=== PATIENT | male | born 1940 | race Caucasian/White ===

== ENCOUNTER 2018-01-30 15:32 | Inpatient (IN) | payer MEDICARE ==
[~2018-01-30] VITALS: Ht 182.9 cm; Wt 116.3 kg
[2018-01-30] MEDS ORDERED: SYNTHROID150 MCG PO (15:53)
[2018-01-30] MEDS ORDERED: METOPROLOL TART25 MG PO (15:53)
[2018-01-30] MEDS ORDERED: GLUCOPHAGE500 MG PO (15:54)
[2018-01-30] MEDS ORDERED: LISINOPRIL20 MG PO (15:54)
[2018-01-30] MEDS ORDERED: EVAC-U-GEN8.6 MG PO (15:54)
[2018-01-30] MEDS ORDERED: TRAMADOL HCL50 MG PO (15:55)
[2018-01-30] MEDS ORDERED: SIMVASTATIN20 MG PO (15:55)
--- OUTSIDE RECORDS SUMMARY | 2018-01-30 16:57 | XMS | Clinical Summary ---
Demographics + + + | Address | [address] | | | [place] [address] | + + + | Home Phone | | + + + | Preferred Language | Unknown | + + + | Marital Status | Single | + + + | Restoration Affiliation | Unknown | + + + | Race | Unknown | + + + | Ethnic Group | Other Race | + + + Author + + + | Author | [facility] | + + + | Organization | [facility] | + + + | Address | Unknown | + + + | Phone | Unavailable | + + + Support + + +---------+ + | Name | Relationship | Address | Phone | + + +---------+ + | Kimberly Cortez | ECON | Unknown | | + + +---------+ + Care Team Providers + +------+ + | Care Cosmetology Instructor Name | Role | Phone | + +------+ + | Opal Meza MD | PP | | + +------+ + Source Comments RADHA is fully live on both [facility] and [facility] Allergies No Known Allergies Current Medications + + +-------+---------+------+------+-------+ | Prescription | Sig. | Disp. | Refills | Star | End | Statu | | | | | | t | Date | s | | | | | | Date | | | + + +-------+---------+------+------+-------+ | simvastatin 20 mg | Take 20 mg by mouth | | | | | Activ | | oral tablet | once daily in the | | | | | e | | | evening. | | | | | | + + +-------+---------+------+------+-------+ | metFORMIN 1,000 mg | Take 1,000 mg by | | | | | Activ | | oral tablet | mouth two times | | | | | e | | | daily. | | | | | | + + +-------+---------+------+------+-------+ | lisinopril 20 mg | Take 20 mg by mouth | | | | | Activ | | oral tablet | once daily. | | | | | e | + + +-------+---------+------+------+-------+ | ibuprofen 200 mg | Take 200 mg by mouth | | | | | Activ | | oral tablet | every six hours as | | | | | e | | | needed. | | | | | | + + +-------+---------+------+------+-------+ | MULTIVITAMIN ORAL | Take 1 tablet by | | | | | Activ | | | mouth once daily. | | | | | e | + + +-------+---------+------+------+-------+ | zinc sulfate 110 | Take 220 mg by mouth | | | | | Activ | | mg (25 mg zinc) oral | once daily. | | | | | e | | tablet | | | | | | | + + +-------+---------+------+------+-------+ Active Problems + + + | Problem | Noted Date | + + + | Prostate cancer (HCC) | 02/17/2015 | + + + Family History + + +------+ + | Medical History | Relation | Name | Comments | + + +------+ + | Cancer | Sister | | lung | + + +------+ + + +------+ + + | Relation | Name | Status | Comments | + +------+ + + | Brother | | Other | | + +------+ + + | Daughter | | Alive | | + +------+ + + | Mother | | | | + +------+ + + | Sister | | | | + +------+ + + | Sister | | Alive | | + +------+ + + | Sister | | Alive | | + +------+ + + | Sister | | Alive | | + +------+ + + Social History + +-------+ +--------+------+ | Tobacco Use | Types | Packs/Day | Years | Date | | | | | Used | | + +-------+ +--------+------+ | Never Smoker | | | | | + +-------+ +--------+------+ + + +---------+ + | Alcohol Use | Drinks/We | oz/Week | Comments | | | ek | | | + + +---------+ + | Yes | 14 | 7.0 | | | | Standard | | | | | drinks or | | | | | | | | | | equivalen | | | | | t | | | + + +---------+ + + + + | Sex Assigned at | Date Recorded | | | | + + + | Not on file | | + + + Last Filed Vital Signs + + + + | Vital Sign | Reading | Time Taken | + + + + | Blood Pressure | 160/94 | 10/18/2016 2:10 PM PST | + + + + | Pulse | 114 | 10/18/2016 2:10 PM PST | + + + + | Temperature | 36.7 C (98.1 F) | 04/26/2016 2:15 PM PDT | + + + + | Respiratory Rate | - | - | + + + + | Oxygen Saturation | 94% | 04/26/2016 2:15 PM PDT | + + + + | Inhaled Oxygen | - | - | | Concentration | | | + + + + | Weight | 119.8 kg (264 lb 3.2 | 10/18/2016 2:10 PM PST | | | oz) | | + + + + | Height | 180.3 cm (5' 11") | 02/17/2015 11:56 AM PDT | + + + + | Body Mass Index | 36.85 | 10/18/2016 2:10 PM PST | + + + + Plan of Treatment + + + + + | Health Maintenance | Due Date | Last Done | Comments | + + + + + | INFLUENZA VACCINE | | | | | (FLU SHOT) | 7 | | | + + + + + Results Not on filefrom Last 3 Months
--- OUTSIDE RECORDS SUMMARY | 2018-01-30 16:57 | XMS | Clinical Summary ---
Demographics + + + | Address | [address] | | | [place] [address] | + + + | Home Phone | | + + + | Preferred Language | Unknown | + + + | Marital Status | Single | + + + | Taoism Affiliation | Unknown | + + + [...] Team Providers + +------+ + | Care Powder Truck Driver Name | Role | Phone | + +------+ + | Opal Meza MD | PP | | + +------+ + Source Comments RADHA is fully live on both [facility] and [facility] Allergies No Known Allergies Current Medications + [...]
--- OUTSIDE RECORDS SUMMARY | 2018-01-30 19:59 | XMS | Clinical Summary ---
Demographics + + + | Address | [address] | | | [place] [address] | + + + | Home Phone | | + + + | Preferred Language | Unknown | + + + | Marital Status | Single | + + + | Sikhism Affiliation | Unknown | + + + [...] Team Providers + +------+ + | Care Electro Mechanic Name | Role | Phone | + +------+ + | Opal Meza MD | PP | | + +------+ + Source Comments RADHA is fully live on both [facility] and [facility] InPatient.[facility] Allergies No Known Allergies Current Medications [...]
--- NOTE | 2018-01-30 20:00 | NUR ---
PT ARRIVED ON FLOOR AT 1935, SPEECH AND HEARING DIRECTOR DID ADMISSION. PT DENIED PAIN AND SEEMED IN GOOD SPIRITS WHEN I ENTERED THE ROOM. WILL DO NEXT ASSESSMENT IN 4HRS FROM ARRIVAL TIME, WILL COLSELY WATCH FOR ETOH WITHDRAWL S/S AND URINE OUTPUT, AND MENTAL STATUS.
--- NOTE | 2018-01-30 20:00 | NUR ---
PT ADMITTED TO ROOM 122 AT 1935 FROM ED, VIA STREETCHER. PT ALERT TO SELF AND PLACE BUT NOT TIME. COOPERATIVE WITHE ASSESSMENT. ALL PROCEDURES EXPLAINED. EYES SCLERA RED WITH YELLOW DRAINAGE, EYES CLEANSED WITH WARM WASH CLOTH. WEARS UPPER PARTIALS, CURRENTLY AT HOME. NO SWALLOW PROBLEMS NOTED, ABLE TO TOLERATE FLUID W/O PROBLEMS. LUNGS DIM AT BASES, DISTANT HEART RATE, TELE#1 PLACED . IV IN L WRIST PATENT, WRAPPED WITH COBAN PT WAS VERY CURIOUS ABOUT TUBE AND PULLINGIN IT. TEACHING DONE, COOP. 2+ EDEMA LOWER THIRD BILAT CALVES, 3+ LEFT ANKLE AND FOOT. STATES PAINFUL LEFT HIP AND OF "NEEDING SURGERY IN THAT HIP". 4+ RIGHT ANKLE AND FOOT, HX R HIP SURGERY. F/C IN PLACE, DRAINING DARK URSULA COLORED URINE. OPEN AREAS AND RED BUTTOCKS AREAS AND R MID INNER LOWER CALF AREA. OLD SCRATCHES LEFT OUTER CALF AREA, NOT OPEN, DIFFERENT HEALING STAGES. ALLEVYN DRESSING TO BE APPLIED TO OPEN AREAS. PT ORIENTED TO HOSP ROUTINES, EQUIPMENT AND PROCEDURES STATED UNDERSTANDING. FAMILY MEMBER IN ROOM LAB HERE DRAWING BLOOD. PT ORIENTED TO HOSP ROOM AND ROUTINE HO 4+ 3+ R ANKLE AND FOOT, 4+ R FOOT AND ANKLE
--- NOTE | 2018-01-30 22:00 | NUR ---
PT IS SLEEPING AT THIS TIME.
--- NOTE | 2018-01-31 | NUR ---
V/S ARE WDL OVERALL. PT IS ONLY ORIENTED TO SELF AT THIS TIME, AND IS NOT FOLLWING SIMPLE COMMANDS FOR THE MOST PART. PT WON'T DEEP BREATH WHEN AUSCULTATING LUNGS. ALL LOBES ARE CLEAR BUT DIMINISHED. STRENGTH IN ARMS IS +5, BILATERAL LEG STRENGTH IS NON EXISTENT. RIGHT LOWER LEG EDEMA IS +4, LEFT LOWER LEG EDEMA IS +3. URINE OUTPUT SO FAR IS ADEQUATE, CIWA AT 2330 WAS A 4. BUTTOCKS HAS RED BLANCHABLE AREAS, SOME LOOK LIKE ABRASIONS. BUTTOCKS WAS CLEANED WITH STERILE NS AND SOME OINTMENT WAS APPLIED WELL A FOAM DRESSING. PT WILL BE TURNED FREQUENTLY. PT AT THIS TIME IS AWAKE IN BED.
--- NOTE | 2018-01-31 02:00 | NUR ---
PT IS SLEEPING.
--- NOTE | 2018-01-31 05:18 | NUR ---
V/S SO FAR ARE WDL. PT IS ONLY ORIENTED TO SELS WHICH IS NOT HIS BASELINE ACCORDING TO HIS NEIGHBOR WHO IS VISITING WE SPEAK. PT IS NOT ABLE TO TRACK PEN WITH EYES, PT OVERALL AT TIMES REFUSES TO FOLLOW COMMANDS. ALL LOBES ARE CLEAR BUT DIMINISHED. PT PUTS IN NO EFFORT TO DEEP BREATH WHEN ASKED. PT HAS NO MOVEMENT IN LOWER EXTREEMETIES, BILATERAL EDEMA IN LOWER LEGS IS SIGNIFICANT. URINE OUTPUT IS ADEQUATE, PT HAS BEEN TURNED SEVERAL TIMES THIS SHIFT. REDNESS ON BUTTOCKS IS BLANCHABLE BUT WAS CLEANED WITH NS AND OINTMENT WAS APPLIED ALONG WITH A FOAM DRESSING. HEEL PROTECTORS ARE ALSO IN PLACE.
--- NOTE | 2018-01-31 06:58 | NUR ---
RECEIVED CRITICAL TROPONIN FROM LAB, RASH CALLED. NO NEW ORDERS GIVEN.
--- NOTE | 2018-01-31 07:00 | NUR ---
BEDSIDE HANDOFF REPORT RECEIVED FROM GLOBE MOUNTER RN. PT RESTING IN BED. IV FLUIDS INFUSING NS AT 125 ML/HR. PT DENIES NEEDS AT THIS TIME.
--- NOTE | 2018-01-31 07:21 | EKG ---
[facility] [address] [facility] [place] [address] Signed Sinus tachycardia with premature ventricular complexes or fusion complexes Left anterior fascicular block Abnormal ECG No previous ECGs available Confirmed by DEISI HERNANDEZ MD ([id number]) on 01/31/2018 7:21:08 AM Electronically Signed By: DEISI HERNANDEZ MD 01/31/18 0721 PATIENT NAME: DONKENDRA Burton Electrocardiogram DATE OF : 44 PHYSICIAN: DEISI HERNANDEZ MD REPORT #: [id number] REPORT IS CONFIDENTIAL AND NOT TO BE RELEASED WITHOUT AUTHORIZATION
--- NOTE | 2018-01-31 07:49 | NUR ---
SPOKE WITH PATIENT IN ROOM. PATIENT LAYING IN BED. PT COOPERATIVE. PT CLEARLY CONFUSED. NO ORIENTED TO PLACE OR TIME. PATIENT RAMBLES OFF SUBJECT. DAUGHTER COMING TODAY FROM [place]. PT WILL LIKELY NEED REHAB STINT TO RETURN HOME ALONE. PT AGREEABLE TO THIS, BUT TALKS ABOUT IT IN RELATIONSHIP TO REHAB STAY AFTER "MY HIP".
--- NOTE | 2018-01-31 08:20 | NUR ---
PT RESTING IN BED. PT CONTINUES TO BE DISORIENTED TO DATE, PLACE AND EVENTS, PT NOW FOLLOWING COMMANDS. PT ON ROOM AIR, LUNG SOUNDS CLEAR WITH EXPIRATORY WHEEZE TO RIGHT LOWER LOBE, DENIES SOB, OCCASIONAL COUGH. PT DENIES NAUSEA, TOLERATING REGULAR DIET. PT WITH EDEMA TO BLE, CONCENTRATED TO FEET AND ANKLES, PULSES FAINT. PT WITH WEAKNESS TO BLE, HEEL PROTECTORS IN PLACE. PT WITH DECUBITUS ULCER TO BOTTOM, PICTURES IN CHART, BARRIER CREAM APPLIED. PT WITH PADRON CATH INPLACE, DRAINING URSULA URINE. PT EATING BREAKFAST, CALL LIGHT WITHIN REACH, DENIES OTHER NEEDS AT THIS TIME.
--- NOTE | 2018-01-31 09:32 | NUR ---
JOHNSON FROM PACU CALLED AND ASKED IF SHE WOULD COME LOOK AT OPEN WOUNDS ON PATIENT COCCYX. PLANNING ON ASSESSING PATIENT THIS AFTERNOON FOR BETTER IDEA OF WHAT TO TREAT PATIENTS WOUND WITH. PICTURES OF PATIENTS WOUND TAKEN AND ARE IN CHART.
--- NOTE | 2018-01-31 11:00 | NUR ---
INSTRUMENT/CONTROL TECHNICIAN TO BEDSIDE TO ASSESS GLUTEAL DECUBITUS. ELIA APPLIED TO OPEN AREAS SECUURED WITH FOAM DRESSING. ZINC OXIDE SPRAY TO SURROUNDED EXCORIATED TISSUE. PT REPOSITIONED TO RIGHT SIDE. PT DENIES OTHER NEEDS AT THIS TIME.
--- NOTE | 2018-01-31 12:30 | NUR ---
PT LUIS ANGEL LIFTED TO SHOWER CHAIR, ASSISTED WITRH SHOWER, AND LUIS ANGEL LIFTED TO BED. GLUTEAL DRESSING FALLING OFF FROM SHOWER, CHANGED. MD TO BEDSIDE TO EVLEANDROLATE PT, NO NEW ORDERS AT THIS TIME. PT DISORIENTED TO DATE AND EVENTS. TOLERATING REGULAR DIET. PADRON CATH, URSULA URINE, QS. IV FLUIDS INFUSING AT 125 ML/HR. PT DENIES OTHER NEEDS AT THIS TIME.
--- NOTE | 2018-01-31 14:00 | NUR ---
IV FLUIDS COMPLETED, NEW BAG OF NORMAL SALINE INFUSING AT 125 ML/HR. PT SAT UP TO EAT LUNCH. PT DENIES OTHER NEEDS AT THIS TIME.
--- NOTE | 2018-01-31 14:23 | NUR ---
PT RESTING, WILL RETURN-GOD BLESS HIM
--- NOTE | 2018-01-31 14:30 | NUR ---
PT ASSISTED TO BATHROOM WITH SBA AND BACK TO CHAIR. PT VOIDED AND HAD SOFT MEDIUM BOWEL MOVEMENT. CPAP REPLACED. PT DENIES OTHER NEEDS AT THIS TIME.
--- NOTE | 2018-01-31 15:52 | NUR ---
PATIENT RESTING IN BED AT THIS TUCKER. NO APPARENT DISTRESS NOTED. CALL LIGHT IN REACH. FAMILY IN ROOM.
--- NOTE | 2018-01-31 16:00 | NUR ---
PT SITTING IN CHAIR. PT ON ROOM AIR, LUNG SOUNDS CLEAR. PT DENIES PAIN. PT CONTINUES TO BE DISORIENTED TO DATE AND EVENTS, STATES HE IS IN A HOSPITAL BUT UNABLE TO STATE [place] OR NAME OF HOSPITAL. PT EDEMA SLIGHTLY WORSENED THIS AFTERNOON. PADRON DRAINING FREELY, QS. PT DENIES OTHER NEEDS AT THIS TIME.
--- NOTE | 2018-01-31 17:03 | NUR ---
THE NURSE AND I LUIS ANGEL HIM TO THE SHOWER CHAIR GAVE HIM A SHOWER. LUIS ANGEL HIM FROM THE SHOWE CHAIR BACK TO HIS BED.
--- NOTE | 2018-01-31 17:04 | NUR ---
MED REC COMPLETE WITH PATIENT'S OWN MEDS BROUGHT IN TO THE HOSPITAL. CHANGES: PATIENT TAKES METOPROLOL TARTRATE, NOT SUCCINATE, 25 MG TAB, TAKE 0.5 TAB TWICE DAILY PATIENT ALSO TAKES LEVOTHYROXINE 150 MCG, NOT 112 MCG, ONCE DAILY
--- NOTE | 2018-01-31 18:00 | NUR ---
PT LUIS ANGEL LIFTED TO BEDSIDE COMMODE FROM CHAIR. PT ABLE TO HAVE MEDIUM BOWEL MOVEMENT. STOOL APPEARED REDDISH ORANGE, HEMOCCULT POSITIVE, MD NOTIFIED. PT LUIS ANGEL LIFTED TO BED. GLUTEAL WOUND DRESSING SOILD, DRESSING CHANGED. PT POSITIONED ON LEFT SIDE. PT DENIES OTHER NEEDS AT THIS TIME.
--- NOTE | 2018-01-31 18:18 | NUR ---
PT ORIENTED TO SELF AND PLACE. PT ON ROOM AIR, LUNG SOUNDS CLEAR. PT TOLERATING ADA DIET, ACHS BLOOD GLUCOSE. PT LUIS ANGEL LIFT, PT/OT MAX ASSIST, UNABLE TO STAND. WOUND CARE CONSULT, ELIA COLLAGEN DRESSING WITH FOAM ALLEVYN. PT WITH PADRON CATH, QS. PT HAD BOWEL MOVEMENT THIS EVENING. DAUGHTER ARRIVED FROM [place], UPDATED ON PT CONDITION.
--- NOTE | 2018-01-31 19:00 | NUR ---
RECEIVED REPORT AT 1900, FOUND PT IN BED AWAKE WITH DAUGHTER AT BEDSIDE. PT DENIED PAIN AND DAUGHTER HAD NO QUESTIONS OR CONCERNS AT THAT TIME.
--- NOTE | 2018-01-31 22:00 | NUR ---
V/S ARE WDL, BG WAS 118, NO INSULIN WAS GIVEN. ALL LOBES ARE CLEAR, ABD SOUNDS ARE PRESENT, EDEMA IS BOTH LOWER LEGS IS SLIGHTLY BETTER BUT STILL PAINFUL TO TOUCH. PT IS STILL ONLY ORIENTED TO SELF AT THIS TIME. OVERALL PT IS FOLLOWING COMMANDS SOMEWHAT BETTER SO FAR THIS SHIFT. NO NEW CONCERNS AT THIS TIME.
--- NOTE | 2018-01-31 23:20 | NUR ---
VITALS AND I&OS DONE AND CHARTED. PT NEEDS NOTHING ELSE AT THAT TIME. BEDSIDE TABLE AND CALL LIGHT WITHIN REACH.
--- NOTE | 2018-02-01 | NUR ---
PT IS AWAKE IN BED. NEW IV WAS STARTED BECAUSE PT PULLED HIS IV OUT.
--- NOTE | 2018-02-01 02:00 | NUR ---
PT IS SLEEPING
--- NOTE | 2018-02-01 04:00 | NUR ---
PT IS STILL SLEEPING.
--- NOTE | 2018-02-01 06:13 | NUR ---
V/S ARE WDL, PT OVERALL HAS SLEPT MOST OF THIS SHIFT. AT START OF SHIFT PT PULLED OUT HIS IV. A NEW IV WAS STARTED AND IT IS STILL INTACT. PT IS STILL ONLY ORIENTED TO SELF SO FAR. BILATERAL LOWER LEG EDEMA IS BETTER THIS SHIFT. PT IS ABLE TO WIGGLE HIS TOES SOME. THIS WAS NOT THE CASE THE PREVIOUS FINANCIAL MANAGEMENT CONSULTANT. PT HOWEVER IS NOT ABLE TO MOVE HIS LEGS. ALL LOBES ARE CLEAR BUT DIMINISHED IN THE BASES. URINE OUTPUT IS EXCELLENT. NO CHANGE IN DECUB ULCERS SO FAR. ON HIS RIGHT MIDDLE FINGER THERE SEEMS TO BE AN INJURY ON HIS NAILS THAT SHOULD BE LOOKED AT. PT STATED THAT HE HAS A PIECE OF METAL UNDER THE NAIL. THE AREA AROUND HIS NAIL ALSO LOOKS RED AND SWOLLEN.
--- NOTE | 2018-02-01 07:20 | NUR ---
BEDSIDE HANDOFF REPORT RECEIVED FROM ASSISTANT REAL ESTATE MANAGER RN. PT RESTING IN BED, DAUGHTER AT BEDSIDE. IV FLUIDS INFUSING AT 125 ML/HR. PADRON CATH DRAINING DARK YELLOW URINE. PT DENIES NEEDS AT THIS TIME.
--- NOTE | 2018-02-01 09:30 | NUR ---
PT RESTING IN BED, DAUGHTER AT BEDSIDE. PT ORIENTED TO SELF, ABLE TO STATE IS IN A HOSPITAL [facility] PT ON ROOM AIR, LUNG SOUNDS CLEAR. PT DENIES PAIN. PT TOLERATING ADA DIET, BOWEL TONES ACTIVE, BLOOD GLUCOSE 102, SS INSULIN HELD. PT WITH TRACE EDEMA TO BLE, IMPROVED FROM YESTERDAY. PT CONTINUES TO HAVE WEAKNESS TO BLE, ABLE TO DORSI/PLANTAR FLEX, LEFT SIDE SLIGHTLY WEAKER THAN RIGHT. PT WITH PADRON CATH IN PLACE, DRAINING YELLOW URINE, QS. REVIEWED LAB RESULTS WITH DAUGHTER, DISCUSSED PLAN OF CARE. DAUGHTER AND PT DENIES OTHER NEEDS AT THIS TIME.
--- NOTE | 2018-02-01 11:00 | NUR ---
MD TO BEDSIDE TO EVAULATE PT. PLAN FOPR CT OF HEAD AND SPINE, ORDER TO DC PADRON CATH, COMPLETED. DAUGHTER AT BEDSIDE, RE[facility]ING FA[facility] NUMBER [facility] PROVIDED. DENIES OTHER NEEDS AT THIS TIME.
--- NOTE | 2018-02-01 12:00 | NUR ---
LIDOCAIN PATCH APPLIED TO LOWER BACK. PT SALINE LOCKED FOR CT SCAN. DAUGHTER AT BEDSIDE. PT AND DAUGHTER DENY OTHER NEEDS AT THIS TIME.
--- NOTE | 2018-02-01 13:05 | NUR ---
PT TO CT SCAN.
--- NOTE | 2018-02-01 13:17 | NUR ---
PATIENT IS AT CT. PHYSICIAN REPORTS BEING UNABLE TO ELICIT LE DTRS AND FURTHER EVALUATING SPINE AT THIS TIME. OKAY TO HOLD UNTIL 02/02.
--- NOTE | 2018-02-01 13:43 | NUR ---
PT BACK FROM CT SCAN. IV FLUIDS INFUSING 1/2 NS +20 K AT 65 ML/HR. PT ORIENTED TO SELF AND [place]. PT DUE TO VOID, ENCOURAGED, PT DENIES NEEDS AT THIS TIME. NO ACUTE CHANGES. PT DENIES NEEDS, REQUESTING TO REST.
--- NOTE | 2018-02-01 16:55 | NUR ---
PT DUE TO VOID, ASSISTED TO BSC WITH LUIS ANGEL LIFT. PT PROVIDED WITH 30-45 MINUTES TO ATTEMPT TO VOID, UNABLE TO VOID. PT HAD SMALL BOWEL MOVEMENT. ASSISTED BACK TO BED. PERICARE AND DRESSING CHANGE TO GLUTEUS. GLUTEAL WOUND WITH OPEN BLEEDING PORTIONS, REDDENED AND EXCORIATED, COVERED WITH ALLEVYN X4. BLADDER SCANNED FOR 887, MD NOTIFDIED, TELEPHONE ORDER TO PLACE INDWELLING CATH.
--- NOTE | 2018-02-01 19:05 | NUR ---
IN ROOM FOR REPORT, PT IS AWAKE IN BED AND ORIENTED AT THIS TIME, AND HIS DAUGHTER IS AT BEDSIDE. PT DENIES NEEDS AT THIS TIME AND CALL LIGHT IS WITHIN REACH.
--- NOTE | 2018-02-01 20:54 | NUR ---
PT IS RESTING WITH EYES CLOSED, RESPIRATIONS ARE EVEN AND NONLABORED. DAUGHTER LEFT FOR THE EVENING, PT WAS CONFUSED BEFORE FALLING ASLEEP, CALL LIGHT IS WITHIN REACH.
--- NOTE | 2018-02-01 22:43 | NUR ---
TURNED PT AND CLEANED UP A BM. NEW DRESSING APPLIED. TEMP AT THIS TIME IS 99.1. EXTRA BLANKETS WERE REMOVED AND PT WAS GIVEN TYLENOL ABOUT AN HOUR AGO. PT REMAINS CONFUSED. BED ALARM ON AND CALL LIGHT IS WITHIN REACH.
--- NOTE | 2018-02-01 22:59 | NUR ---
ASSISTED LAURA DELCID DID TREATMENT AND REPOSITIONED THE PATIENT.
--- NOTE | 2018-02-01 23:56 | NUR ---
PT IS RESTING WITH EYES CLOSED, RESPIRATIONS EVEN AND NONLABORED, CALL LIGHT IS WITHIN REACH AND BED ALARM ON.
--- NOTE | 2018-02-02 02:03 | NUR ---
REMOVED PILLOWS UNDER RT SIDE OF PT, HE IS STILL SLEEPING. RESPIRATIONS EVEN AND NONLABORED. CALL LIGHT IS WITHIN REACH AND BED ALARM ON.
--- NOTE | 2018-02-02 03:08 | NUR ---
PT IS AWAKE AT THIS TIME HIS GOWN WAS OFF, REPLACED GOWN AND COVERED PT. IV IS INTACT. PT REMAINS CONFUSED. CALL LIGHT IS WITHIN REACH AND BED ALARM IS ON.
--- NOTE | 2018-02-02 04:00 | NUR ---
REPOSITIONED PT, HE STILL REMAINS CONFUSED AND HAS DIFFICULTY FOLLOWING DIRECTIONS. PT HAS NO REQUESTS AT THIS TIME. CALL LIGHT IS WITHIN REACH AND BED ALARM IS ON.
--- NOTE | 2018-02-02 05:02 | NUR ---
PT SLEPT THE MAJORITY OF THE NIGHT IN BETWEEN REPOSTITIONING. PT STARTED THE SHIFT ALERT AND ORIENTED BUT QUICKLY BECAME CONFUSED AGAIN SAYING STRANGE THINGS AND NOT KNOWING WHERE HE WAS. HIS DAUGHTER WENT TO HIS HOUSE TO SLEEP FOR THE NIGHT BUT WILL RETURN IN THE MORNING. HE WAS GIVEN TYLENOL FOR PAIN AND ELEVATED TEMP OF 100 WHICH RESOLVED. DRESSING ON COCCYX WAS CHANGED AFTER PT HAD A BM. BED ALARM HAS BEEN ON BUT PT HAS NOT TRIED TO GET OUT OF BED.
--- NOTE | 2018-02-02 06:10 | NUR ---
WOKE PT TO TAKE MEDS. REPOSITIONED PT WELL. PT DENIES NEEDS AT THIS TIME. CALL LIGHT IS WITHIN REACH AND BED ALARM IS ON.
--- NOTE | 2018-02-02 07:20 | NUR ---
RECEIVED REPORT FROM BUTADIENE CONVERTER UTILITY OPERATOR, PATIENT STILL SLEEPING, RESPS REGULAR AND EVEN.
--- NOTE | 2018-02-02 08:51 | NUR ---
DID HIS BLOOD SUGAR CHECK.
--- NOTE | 2018-02-02 10:00 | NUR ---
PATIENT BEING SEEN BY [facility] AND PT. PATIENT ATE 100% OF HIS BREAKFAST.
--- NOTE | 2018-02-02 10:50 | NUR ---
PADRON CLAMPED PER 'S ORDERS. TO WAIT UNTIL PATIENT SAYS HE NEEDS TO URINATE AND THEN BLADDER SCAN.
--- NOTE | 2018-02-02 12:30 | NUR ---
INFORMED ABOUT PATIENT'S RESIDUAL PER BLADDER SCAN OF 252MLS.
--- NOTE | 2018-02-02 13:00 | NUR ---
PATIENT'S PADRON STILL CLAMPED AND PATIENT VISITING WITH FAMILY. PATIENT STILL DOES NOT FEEL LIKE HE NEEDS TO URINATE.
--- NOTE | 2018-02-02 14:30 | NUR ---
BLADDER SCANNED PT FOR 252. PT DOES NOT FEEL THE URGE TO VOID YET. PT DENIES FURTHER NEEDS.
--- NOTE | 2018-02-02 18:24 | NUR ---
PATIENT HAS BEEN MORE ORIENTED TODAY AND HAS BEEN EATING WELL 1750 PADRON WAS FINALLY UNCLAMPED AFTER A BLADDER SCAN OF OVER 650 AND WAS INFORMED. PADRON WILL REMAIN IN FOR NOW PATIENT NEVER FELT THE URGE TO URINATE. PATIENT HAS MULTIPLE AREAS OF SKIN BREAKDOWN ON HIS BACKSIDE. LARGE LIQUID STOOL CLEANED UP THIS AM. WOUND CONSULT IN THE MORNING. PATIENT HAD SOME HEART BURN AND WAS JUST ORDERED MAALOX, WHICH HE GOT AT [employer]. VS HAVE BEEN GOOD. IV FLUIDS TO BE DC'D WHEN THIS BAG IS FINISHED, AND IV SL.
--- NOTE | 2018-02-02 20:49 | NUR ---
MEDICATED WITH TYLENOL 500MG PO C/O NECK AND LEG PAIN, SCLERA RED, YELLOW SOFT DRAINAGE, OINTMENT TO BOTH EYES APPLIED. IVF TO [facility] IVF BAG COMPLETED. EDEMA LEGS, WEAK TENDER TO [facility] LEGS, F/C PATENT. FACE WASHED, ABLE TO TOLERATED FLUIDS WELL. ANXIOUS, WANTS TO GO HOME, REASSURED AND REORIENTED TO CURRENTL HEALTH AND PHYSICAL STATE. CALM
--- NOTE | 2018-02-02 21:43 | NUR ---
Turned left side, 2 person assist. Procedure explained, coop. tender lower extremtities present when turning, Medicated with tylenol earlier, heel protectors in place, decereased edema noted
--- NOTE | 2018-02-02 23:15 | NUR ---
Turned r side, incontinent of large amount of soft brown leda. ángela cared done. Allevyn dressing to open areas on buttrocks applied, Nystatin cream and barrier cream applied. . F/c care done, penis red . Procedure explained pt sudhaatie.
--- NOTE | 2018-02-03 05:51 | NUR ---
Pt currently resting. Awakens easily. Warm wash cloth to face. erythromycin ointment to eyes, sclera still red bilat but improving. soft cream-yellow eye discharge present, more on left than right. Oral care done, Tolerating liquids w/o problems. 2SL intact, patent. Turned q2h. Continues to c/o leg pain when turned, decreased edema of feet and ankles noted. right inner lower calf open area healing. red rash over top of r foot; red, warm area by left toe. R mid finger has fingernail that is split from tip of finger to base of nail tender. F?C patent, draining yellow urine, QS Nyastatin powder applied to red ángela area, penis red, edematous. ángela care done. Open areas on buttocks and crakc of buttocks red, with serous drainage at times, Allevyn dressing applied All procedures explained. Cooperative. Pt still disoriented to Time. PT is a shaquille lift, turned q2h. Medicated with Tylenol 500mg per leg pain x1, effective
--- NOTE | 2018-02-03 10:00 | NUR ---
PATIENT UP TO SHOWER WITH 2 PERSON ASSIST WITH LUIS ANGEL. PADRON CATH CARE DONE BY PATIENT. SHAVE DONE. PATIENT BACK TO BED.
--- NOTE | 2018-02-03 10:15 | NUR ---
DR UNDERWOOD STATES PATIENT WILL PROBABLY NEED SNF WITH EXTENDED STAY BEFORE GOING HOME DESIRED. CALLED [facility] AND SPOKE WITH LIFT OPERATOR COSMO. SHE STATES PATIENT IS NOT SERVICE CONNECTED FOR SNF COVERAGE. HE WILL NEED TO USE MEDICARE.
--- NOTE | 2018-02-03 10:44 | NUR ---
EYE OINTMENT DUE. GIVEN ORDERED (SEE MAR). PT GETTING UP WITH ORDER DESK CALLER'S FOR SHOWER.
--- NOTE | 2018-02-03 11:19 | NUR ---
EARLY CHILDHOOD WORKER CALLED THIS RN TO BEDSIDE TO HELP PT BACK TO BED AND ASSESS SKIN ULCEATIONS ON BUTTOX. PT TRANSFERED BACK TO BED WITH LUIS ANGEL LIFT AND 3 PERSON ASSIST. NEW DEPENDS PLACED. MD AT BEDSIDE TO SEE PTS BUTTOX WOUNDS. DRESSING REMAINS OFF AT THIS TIME UNTIL WOUND ASSESSMENT CAN BE DONE BY RECOATING MACHINE OPERATOR. MD AWARE. PT RESTING IN BED. FLUIDS ENCORUAGED. PT STATES NO ADDITIONAL REQUESTS OR COMPLAINS AT THIS TIME. CALL LIGHT WITHIN REACH. BED RAILS UP.
--- NOTE | 2018-02-03 11:27 | NUR ---
PATIENT IN BED NURSE AND IN ROOM TO SEE PATIENT. NO OTHER NEEDS AT THIS TIME. CLEAN LINENS ON BED.
--- NOTE | 2018-02-03 11:40 | NUR ---
DENTAL SURGERY DOCTOR CALLED FOR ASSESSMENT. WAITING FOR RETURN CALL.
--- NOTE | 2018-02-03 11:46 | NUR ---
STAMP PRESS OPERATOR RETURNED CALL. STATE SHE WILL BE DOWN FOR ASSESSMENT LATER TODAY. WOUND CARE STATES TO KEEP PT OFF OF BACK FOR NOW. FLOAT HIPS OR LAY PT ON SIDE. PT TURNED AGAIN. ABD APPLIED [place] STAMP PRESS OPERATOR RECCOMENDATION.
--- NOTE | 2018-02-03 11:50 | NUR ---
SPOKE WITH PATIENT AND DAUGHTER ADRIANA IN ROOM. BOTH ARE AWARE THAT PATIENT WILL NEED A REHAB STAY BEFORE HE COULD RETURN HOME ALONE. DAUGHTER IS FROM [place] AND SHE AND HE AGREE HE WANTS TO STAY IN THIS AREA. I DISCUSSED THAT I HAVE SPOKEN WITH [facility] AND HE IS NOT SERVICE CONNECTED FOR SNF BENEFITS. HE WILL NEED TO USE HIS MEDICARE BENEFITS. EXPLAINED MEDICARE PAYS 100% FOR FIRST 21 DAYS AND THEN THEN 80%. PATIENT STATES HE WOULD LIKE TO STAY IN [place] AND SO WOULD LIKE TO GO TO [facility].
--- NOTE | 2018-02-03 13:30 | NUR ---
TIME TO TURN PT. PT RESTING BUT RESPONDS TO VOICE. DAUGHTER AT BEDSIDE. PT TURNED TO RIGHT SIDE. PROPPED WITH PILLOWS. EYE OINTMENT GIVEN ORDERED (SEE MAR). PT STATES "I FEEL COMFORTABLE." BELONGINGS AND WATER WITHIN REACH. FLUIDS ENCOURAGED. CALL LIGHT WITHIN REACH. BED RAILS UP.
--- NOTE | 2018-02-03 13:39 | NUR ---
FAXED CLINICALS TO [facility]. FAX CONFIRMATION RECEIVED. SPOKE WITH WIRE FENCE BUILDER SYEDA. SHE SUGGESTS THAT PATIENT AND DAUGHTER CALL [facility] AND SPEAK WITH THEM FOR POSSIBLE MEDICAID COVERAGE IF HIS BENEFITS RUN OUT FOR MEDICARE HE COULD HAVE A PROLONGED STAY DUE TO NEEDS. SPOKE WITH DAUGHTER ADRIANA IN ROOM. CONTACT NUMBER GIVEN TO HER FOR [facility] TO ASK ABOUT MEDICAID BENEFITS. SHE STATES SHE WILL CALL THIS AFTERNOON.
--- NOTE | 2018-02-03 13:50 | NUR ---
PATIENT RESTING IN BED WITH EYES CLOSED. CALL BUTTON IN HAND. DAUGHTER JUST LEFT ROOM. WARM BLANKET GIVEN. NO OTHER NEEDS AT THIS TIME.
--- NOTE | 2018-02-03 15:10 | NUR ---
SPOKE WITH SYEDA WOOL AND PELT GRADER FOR [facility]. THEY WILL BE ABLE TO ADMIT PATIENT TOMORROW IF READY FOR DISCHARGE. UPDATED DR UNDERWOOD.
[2018-02-03] MEDS ORDERED: CALCIUM CARBON200 MG PO (15:29)
[2018-02-03] MEDS ORDERED: NYSTOP60 GM TOP (15:29)
[2018-02-03] MEDS ORDERED: LIDODERM1 EACH TD (15:30)
[2018-02-03] MEDS ORDERED: TRAMADOL HCL50 MG PO (15:30)
--- NOTE | 2018-02-03 15:39 | NUR ---
AFTERNOON ASSESSMENT DUE. RESTING WITH EYES CLOSED, RR = 20 BPM. PT TURNED TO LEFT SIDE. ASSESSMENT DONE. PT DISORIENTED, UNAWARE OF PLACE, TIME OR SITUATION. PLEASENT WITH VAGUE RESPONSES. PT FALLS QUICKLY BACK TO SLEEP. BED RAILS UP. CALL LIGHT WITHIN REACH.
--- NOTE | 2018-02-03 16:11 | NUR ---
CLINICAL NEUROPSYCHOLOGIST, GERSON, LAURA, HERE FOR CONSULT. ASSESSMENT DONE. GERSON ADVISES TO PUT NO DRESSING ON BUTTOX AREA AT THIS TIME. LEAVE OPEN TO AIR WITH DEPENDS IN PLACE AND FREQUENT CHECKS (Q 2HOUR) FOR BMS OTHER ISSUES. ANALI CARE DONE. NEW DEPENDS PLACED. PT POSITIONED BACK TO LEFT SIDE. WARM BLANKET PROVIDED. PT STATES HE DOES NOT NEED PAIN MEDICAITON AT THIS TIME. BED RAILS UP. CALL LIGTH WITHIN REACH.
--- NOTE | 2018-02-03 16:12 | NUR ---
RN X3 IN ROOM ASSISTING PATIENT. NO NEEDS AT THIS TIME.
--- NOTE | 2018-02-03 16:16 | NUR ---
PHONE CALL FROM [facility] REQUESTING WOUND CONSULT FOR THIS PATIENT. PATIENT WAS LYING ON HIS LEFT SIDE ASLEEP WHEN I ENTERED THE ROOM. 3 RN'S POSITION PATIENT FURTHER ONTO HIS LEFT SIDE FOR ME TO VISUALIZE THE WOUND. PATIENT TOLERATES THE REPOSITIONING WELL. PATIENT IS INCONTINENT OF PASTY BROWN STOOL. BARRIER BATH WIPES USED FOR ANALI CARE. BILATERAL BUTTOCK IS FOUND TO BE BRIGHT RED AND EXCORIATED. SEVERAL SMALL DARK, SCAB APPEARING WOUNDS ARE NOTED TO BUTTOCK BILATERALLY AND SMALL STAGE II ULCER IS NOTED TO COCCYX AREA AT THE TOP OF THE INTRAGLUTEAL CLEFT. ULCER IS NOTED TO BE 90% YELLOW SLOUGH TISSUE AND 10% PALE PINK TISSUE. ZINC SPRAY USED TO COVER ENTIRE BUTTOCK AREA. BUTTOCK AREA IS FLOATED W/PILLOW TO LUMBAR SPINE AND UPPER THIGH AND PT IS CONTINUED TO BE TURNED ON HIS LEFT SIDE. ATTENDS AND DRAW SHEET IN PLACE. NO CHUCKS IS PLACED UNDER PATIENT @ THIS TIME. I RECOMMEND CONTINUING TO TURN PATIENT Q 2 HOURS ALLEVIATING ALL PRESSURE FROM THE BUTTOCK AREA. CONTINUE W/ZINC REAPPLICATION W/EACH BOWEL MOVEMENT. ANALI CARE TO BE DONE W/BARRIER BATH WIPES. REPORT IS GIVEN TO K[facility] IN THIS REGARD AND THEIR QUESTIONS ARE ANSWERED.
--- NOTE | 2018-02-03 17:57 | NUR ---
THIS RN TO BEDSIDE TO TURN PT. PHYSICAL THERAPY PREPARING TO WORK WITH PT SO TURN IS DELAYED. MEDICAITON GIVEN ORDERED. PT REQUESTS TUMS. GIVEN ORDERED. PT WORKING WITH PT. DAUGHTER AT BEDSIDE.
--- NOTE | 2018-02-03 18:34 | NUR ---
PT HERE FOR [place], LUIS ANGEL LIFT NEEDED FOR TRANFERS. PT DIORIENTED TO TIME AND EVENT. FULL CODE, ADA DIET. PT INCONTENENT OF BOTH STOOL AND URINE. PADRON CATHETER IN PLACE. DEPENDS IN PLACE. PT NEEDS Q2 HR CHECKS FOR STOOL AND ASSESSMENT OF BUTTOX PRESSURE ULCER. KEEP BACK-SIDE OFF OF BED WITH SIDE POSITIONING OR BY FLOATING HIPS. RIGHT MIDDLE FINGERNAIL SPLIT AND COMING OFF, CONSULT TO OCCUR. PT HAS PRN TUMS AND TRAMADOL FOR PAIN IF NEEDED. TUMS NEEDED TODAY. ENCOURAGE FOOD AND FLUIDS.
--- NOTE | 2018-02-03 19:20 | NUR ---
IN ROOM FOR REPORT, PT IS AWAKE IN BED AND DAUGHTER IS IN THE ROOM. REPOSITIONED PT AND ENCOURAGED HIM TO DRINK FLUIDS. PT DENIES NEEDS AT THIS TIME. CALL LIGHT IS WITHIN REACH AND BED ALARM ON.
--- NOTE | 2018-02-03 21:40 | NUR ---
ADMINISTERED MEDICATIONS, PT DENIES FURTHER NEEDS AT THIS TIME. CALL LIGHT IS WITHIN REACH AND BED ALARM IS ON.
--- NOTE | 2018-02-03 22:30 | NUR ---
WENT INTO ROOM TO TURN PT, HE STATES THAT HE IS HAVING A BM AT THIS TIME. ADVISED PT TO USE CALL LIGHT WHEN DONE SO WE CAN GET HIM CLEANED UP AND REPOSITIONED. CALL LIGHT IS WITHIN REACH AND BED ALARM IS ON.
--- NOTE | 2018-02-04 00:07 | NUR ---
ASSISTED LAURA DELCID CLEANED THE PATIENT HAD A BOWEL MOVEMENT. REPOSITIONED PATIENT LYING ON LEFT SIDE. CALL LIGHT WITHIN REACH. NO OTHER NEEDS AT THIS TIME.
--- NOTE | 2018-02-04 02:45 | NUR ---
REPOSITIONED PT, CALL LIGHT IS WITHIN REACH AND BED ALARM ON.
--- NOTE | 2018-02-04 05:05 | NUR ---
PT IS RESTING WITH EYES CLOSED, RESPIRATIONS EVEN AND NONLABORED. CALL LIGHT IS WITHIN REACH AND BED ALARM ON.
--- NOTE | 2018-02-04 05:18 | NUR ---
PT WAS ABLE TO SLEEP PART OF THE NIGHT, PT WAS INCONTINENT OF STOOL AND CLEANED UP. BARRIER WIPES USED AND BARRIER SPRAY APPLIED ALONG WITH NYSTATIN TO SCROTAL AREA. PT DENIES PAIN BUT HAS SOME DISCOMFORT WITH TURNING. PADRON CATHETER IN PLACE AND VOIDING QS. PT IS ON ADA DIET, IS A TURN Q2H, AND LUIS ANGEL LIFT IS USED.
--- NOTE | 2018-02-04 07:18 | NUR ---
RECIEVED BEDSIDE REPORT FROM [place]. PT IN BED, ON SIDE WITH PILLOWS SUPPORTING HIM. PT OPENED EYES WHEN THIS RN SPOKE TO HIM, DID NOT RESPOND. PERSONAL SUPPLIES AND CALL BUTTON IN REACH.
--- NOTE | 2018-02-04 08:42 | NUR ---
PT GIVEN CATH AND ANALI CARE, NYSTATIN APPLIED TO SCROTUM, INGUINAL CREASES. ANALI CARE DONE, BARRIOR SPRAY AND CREAM APPLIED. PT NOW POSITIONED ON BACK, WITH PILLOW UNDER EACH HIP, FLOATING. PT ATE 100% OF BREAKFAST, TOLERATED WELL. ALERT, ORIENTED TO SELF, TO PLACE, TO EVENTS, AND TO YEAR, DISORIENTED TO DAY AND MONTH.
--- NOTE | 2018-02-04 09:33 | NUR ---
PT SLEEPING SOUNDLY. AROUSED EASILY TO VERBAL STIMULI. PT'S DAUGHTER AT BEDSIDE. GAVE PT HIS ORDERED EYE OINTMENT. PT DENIED NEEDS. PERSONAL SUPPLIES AND CALL BUTTON IN REACH.
--- NOTE | 2018-02-04 10:15 | NUR ---
PT SLEEPING SOUNDLY, DAUGHTER AT BEDSIDE. NO S/S DISTRESS OR DISCOMFORT. PERSONAL SUPPLIES AND CALL BUTTON IN REACH.
--- NOTE | 2018-02-04 10:39 | NUR ---
RECIEVED PHONE CALL FROM BRAND PROTECTION MANAGER RYAN STATING THAT THE ORDERS THEY RECIEVED LAST EVENING WERE FINE AND THEIR CESSPOOL CLEANER WOULD BE HERE AROUND 1115. INFORMED PTS NURSE AND PTS DAUGHTER ADRIANA OF THIS, SHE HAD NO QUESTIONS AT THIS TIME.
--- NOTE | 2018-02-04 11:31 | NUR ---
PATIENT HAS SMALL DECUBES ON GLUTEAL AREA. HE IS DISCHARGED TO T BUT A NUTRITION CONSULT WAS RECEIVED. PATIENT WAS EATING WELL WHILE HERE. NEEDS TO ENSURE HE IS EATING WELL AT [facility].
--- NOTE | 2018-02-04 12:00 | NUR ---
REPORT GIVEN TO NAVID NURSE AT [facility] VIA TELEPHONE. QUESTIONS ASKED AND ANSWERED, VERBALIZED UNDERSTANDING.
== END 2018-02-04 11:25 | disposition home or self-care (01) | DRG 682 ==
LOC: ED 15:32 → MS 18:52
PROVIDERS: ADMIT Internal Medicine
DX: N17.9 Acute kidney failure, unspecified (principal); G93.41 Metabolic encephalopathy; G82.20 Paraplegia, unspecified; I12.9 Hypertensive chronic kidney disease with stage 1 through stage 4 chronic kidney disease, or unspecified chronic kidney disease; N18.3 Chronic kidney disease, stage 3 (moderate); E87.6 Hypokalemia; R33.9 Retention of urine, unspecified; L89.152 Pressure ulcer of sacral region, stage 2; E03.9 Hypothyroidism, unspecified; E78.5 Hyperlipidemia, unspecified; M51.36 Other intervertebral disc degeneration, lumbar region; E11.22 Type 2 diabetes mellitus with diabetic chronic kidney disease; R91.8 Other nonspecific abnormal finding of lung field; Z79.84 Long term (current) use of oral hypoglycemic drugs
CPT/HCPCS: 36415; 70450; 71045; 72125; 72128; 72131; 80048; 80053; 81001; 82550; 82570; 83605; 83735; 83880; 84100; 84153; 84300; 84484; 84540; 85025; 87502; 93005; 93010; 97110; 97163; 97165; 97530; J1650; J7030